=== PATIENT | female | born 1980 | race Caucasian/White ===

== ENCOUNTER 2017-07-24 11:18 | Emergency (ER) | payer OTHER ==
[~2017-07-24] VITALS: Ht 157.5 cm; Wt 136.1 kg
[~2017-07-24 11:18] MED LIST: ALBU90OI INH; ALBU90OI61 INH; AMOCLA875 PO; AZIT250 PO; Bactrim Ds Tab1 EACH PO; CEPH500 PO; CHOLESTEROL PILL; CLIN300 PO; CODGUAEL PO; DOCU100 PO; FAMO20 PO; FLUC150A PO; HYDACE10B; HYDACE5 PO; Norco 5-325 Ta1 EACH PO; PRED10 PO; PRED20 PO; Polytrim Eye Dr10 ML BOTHEYES; SULTRIDS PO
[2017-07-24] MEDS ORDERED: WATER PILL (12:23)
[2017-07-24] MEDS ORDERED: Bactrim Ds Tab1 EACH PO (13:29)
[2017-07-24] MEDS ORDERED: Keflex500 MG PO (13:29)
[2017-07-24] MEDS ORDERED: NYATA15 GM TOP (13:38)
== END 2017-07-24 13:38 | disposition home or self-care (01) ==
LOC: ER 11:18
DX: L03.314 Cellulitis of groin (principal); I10 Essential (primary) hypertension; J45.909 Unspecified asthma, uncomplicated; F17.200 Nicotine dependence, unspecified, uncomplicated
CPT/HCPCS: 99283

== ENCOUNTER 2017-09-05 16:11 | Emergency (ER) | payer OTHER ==
[~2017-09-05] VITALS: Ht 160 cm; Wt 136.1 kg
[~2017-09-05 16:11] MED LIST changes: +Keflex500 MG PO; +NYATA15 GM TOP; +WATER PILL
[2017-09-05] MEDS ORDERED: IBUP800 PO (17:32)
== END 2017-09-05 17:45 | disposition home or self-care (01) ==
LOC: ER 16:11
DX: R07.81 Pleurodynia (principal); Z79.899 Other long term (current) drug therapy; J45.909 Unspecified asthma, uncomplicated; F17.210 Nicotine dependence, cigarettes, uncomplicated
CPT/HCPCS: 96372; 99283; J1885

== ENCOUNTER 2019-01-03 05:33 | Emergency (ER) | payer OTHER ==
[~2019-01-03] VITALS: Ht 160 cm; Wt 127.0 kg
[~2019-01-03 05:33] MED LIST changes: +IBUP800 PO; +Pepcid40 MG PO
[2019-01-03 06:21] LABS: BASOPHILS ABSOLUTE AUTO 0.03 K/mm3 (0.00-0.23); BASOPHILS PERCENT AUTO 0 % (0-2); EOSINOPHILS ABSOLUTE AUTO 0.12 K/mm3 (0.00-0.68); EOSINOPHILS PERCENT AUTO 2 % (0-6); Hematocrit 37.3 % (33.0-51.0); Hemoglobin 12.1 g/dL (11.5-16.0); IMMATURE GRAN ABSOLUTE AUTO 0.03 K/mm3 (0.00-0.10); IMMATURE GRAN PERCENT AUTO 0 % (0-1); LYMPHOCYTES ABSOLUTE AUTO 1.61 K/mm3 (0.84-5.20); LYMPHOCYTES PERCENT AUTO 22 % (21-46); MONOCYTES ABSOLUTE AUTO 0.63 K/mm3 (0.16-1.47); MONOCYTES PERCENT AUTO 9 % (4-13); Mean Corpuscular HGB 28.7 pg (26.0-34.0); Mean Corpuscular HGB Conc 32.4 g/dL (31.5-36.5); Mean Corpuscular Volume 89 fL (80-100); Mean Platelet Volume 9.4 fL (9.1-12.4); NEUTROPHILS ABSOLUTE AUTO 5.02 K/mm3 (1.96-9.15); NEUTROPHILS PERCENT AUTO 68 % (41-73); Platelet Count 182 K/mm3 (150-400); RDW Coefficient Variation 14.1 % (11.7-14.2); RDW Standard Deviation 45.4 fL (35.1-46.3); Red Blood Cell Count 4.21 M/mm3 (3.80-5.20); White Blood Cell Count 7.44 K/mm3 (4.00-11.30)
[2019-01-03 06:35] LABS: Source, Urine Clean Catch
[2019-01-03 06:40] LABS: Blood, Urine 5+ (Neg); Glucose Qualitative, Urine Neg (Neg); Ketones, Urine 1+ (Neg); Leukocyte Esterase, Urine 2+ (Neg); Nitrite, Urine Neg (Neg); Protein, Urine 2+ (Neg); Specific Gravity, Urine 1.015 (1.003-1.022); Urobilinogen, Urine 2+ (Normal)
[2019-01-03 06:50] LABS: Appearance, Urine Hazy (Clear); Bilirubin, Urine 1+ (Neg); Color, Urine Amber (P-Yellow); Red Blood Cells, Urine TNTC /hpf (0-2); White Blood Cells, Urine TNTC /hpf (0-5)
[2019-01-03 06:51] LABS: Bacteria Rare /hpf; Squamous Epithelial Cells Few /hpf (Few)
[2019-01-03 07:14] LABS: Alanine Aminotransfer (ALT/SGP 283 U/L (12-78); Albumin, Blood 3.1 g/dL (3.4-5.0); Albumin/Globulin Ratio 0.8 (0.8-1.8); Alk Phos 306 U/L (50-136); Anion Gap 5 mmol/L (6-16); Aspartate Aminotrans (AST/SGOT 356 U/L (12-37); Bilirubin, Total 0.9 mg/dL (0.1-1.0); Blood Urea Nitrogen 21 mg/dL (8-24); Bun/Creatinine Ratio 31.7 (12.0-20.0); CO2, Blood 26 mmol/L (21-32); Calcium, Blood 8.7 mg/dL (8.5-10.1); Chloride, Blood 107 mmol/L (98-108); Creatinine, Blood 0.66 mg/dL (0.40-1.00); Globulin, Blood 3.8 g/dL (2.2-4.0); Glomerular Filtration Rate >60 (60-); Glucose, Blood 122 mg/dL (70-99); Sodium, Blood 138 mmol/L (136-145); Total Protein, Blood 6.9 g/dL (6.4-8.2)
[2019-01-03] MEDS ORDERED: Percocet 10-321 EACH PO (07:31)
== END 2019-01-03 07:49 | disposition home or self-care (01) ==
LOC: ER 05:33
PROVIDERS: Emergency Medicine
DX: K80.50 Calculus of bile duct without cholangitis or cholecystitis without obstruction (principal); J45.909 Unspecified asthma, uncomplicated; F17.210 Nicotine dependence, cigarettes, uncomplicated
CPT/HCPCS: 80053; 81001; 81025; 83690; 85025; 87086; 96374; 96375; 99284-25; J2405; J3010

== ENCOUNTER 2019-04-16 15:31 | Emergency (ER) | payer OTHER ==
[~2019-04-16] VITALS: Ht 160 cm; Wt 121.1 kg
[~2019-04-16 15:31] MED LIST changes: +Percocet 10-321 EACH PO
[2019-04-16 16:03] LABS: BASOPHILS ABSOLUTE AUTO 0.03 K/mm3 (0.00-0.23); BASOPHILS PERCENT AUTO 0 % (0-2); EOSINOPHILS ABSOLUTE AUTO 0.11 K/mm3 (0.00-0.68); EOSINOPHILS PERCENT AUTO 1 % (0-6); Hematocrit 42.2 % (33.0-51.0); Hemoglobin 13.8 g/dL (11.5-16.0); IMMATURE GRAN ABSOLUTE AUTO 0.06 K/mm3 (0.00-0.10); IMMATURE GRAN PERCENT AUTO 1 % (0-1); LYMPHOCYTES ABSOLUTE AUTO 2.03 K/mm3 (0.84-5.20); LYMPHOCYTES PERCENT AUTO 16 % (21-46); MONOCYTES ABSOLUTE AUTO 0.63 K/mm3 (0.16-1.47); MONOCYTES PERCENT AUTO 5 % (4-13); Mean Corpuscular HGB 28.9 pg (26.0-34.0); Mean Corpuscular HGB Conc 32.7 g/dL (31.5-36.5); Mean Corpuscular Volume 89 fL (80-100); Mean Platelet Volume 9.5 fL (9.1-12.4); NEUTROPHILS ABSOLUTE AUTO 10.15 K/mm3 (1.96-9.15); NEUTROPHILS PERCENT AUTO 78 % (41-73); Platelet Count 285 K/mm3 (150-400); RDW Coefficient Variation 12.7 % (11.7-14.2); RDW Standard Deviation 41.3 fL (35.1-46.3); Red Blood Cell Count 4.77 M/mm3 (3.80-5.20); White Blood Cell Count 13.01 K/mm3 (4.00-11.30)
[2019-04-16 16:36] LABS: Alanine Aminotransfer (ALT/SGP 272 U/L (12-78); Albumin, Blood 3.3 g/dL (3.4-5.0); Albumin/Globulin Ratio 0.8 (0.8-1.8); Alk Phos 216 U/L (50-136); Anion Gap 4 mmol/L (6-16); Aspartate Aminotrans (AST/SGOT 352 U/L (12-37); Bilirubin, Total 1.4 mg/dL (0.1-1.0); Blood Urea Nitrogen 18 mg/dL (8-24); Bun/Creatinine Ratio 26.4 (12.0-20.0); CO2, Blood 30 mmol/L (21-32); Calcium, Blood 9.1 mg/dL (8.5-10.1); Chloride, Blood 102 mmol/L (98-108); Creatinine, Blood 0.68 mg/dL (0.40-1.00); Globulin, Blood 4.3 g/dL (2.2-4.0); Glomerular Filtration Rate >60 (60-); Glucose, Blood 110 mg/dL (70-99); Potassium, Blood 3.9 mmol/L (3.5-5.5); Sodium, Blood 136 mmol/L (136-145); Total Protein, Blood 7.6 g/dL (6.4-8.2)
== END 2019-04-16 21:31 | disposition short-term general hospital (02) ==
LOC: ER 15:31
PROVIDERS: Physician Assistant
DX: K80.70 Calculus of gallbladder and bile duct without cholecystitis without obstruction (principal); K85.90 Acute pancreatitis without necrosis or infection, unspecified; Z87.891 Personal history of nicotine dependence
CPT/HCPCS: 36415; 76705; 80053; 83690; 84703; 85025; 96365; 96375; 99285-25; J2270; J2405; J2543; J7120

== ENCOUNTER → 2019-07-31 | Outpatient (CLI) | payer OTHER ==
[2019-08-02 13:07] LABS: HPV 16 Negative (Negative); HPV 18 Negative (Negative); HPV OTHER HR TYPES Negative (Negative)
== END ==
LOC: LAB SRC 11:00 → LAB SHORT 11:00
PROVIDERS: Nurse Practitioner Family
DX: Z12.4 Encounter for screening for malignant neoplasm of cervix (principal)
CPT/HCPCS: 87624; G0123

== ENCOUNTER → 2022-11-27 | Outpatient (CLI) | payer OTHER | END | disposition home or self-care (01) | LOC: LAB SHORT 14:14 → LAB 14:14 | DX: N91.1 Secondary amenorrhea (principal) | CPT/HCPCS: 84703 ==

== ENCOUNTER 2023-07-16 09:00 | Emergency (ER) | payer OTHER ==
[~2023-07-16] VITALS: Ht 157.5 cm; Wt 122.1 kg
[2023-07-16 10:00] VITALS: BP 120/71
[2023-07-16] MEDS ORDERED: CEPH500 PO ×2 (11:54→12:05)
== END 2023-07-16 12:02 | disposition home or self-care (01) ==
LOC: ER 09:00
DX: L03.115 Cellulitis of right lower limb (principal); J45.909 Unspecified asthma, uncomplicated; Z87.891 Personal history of nicotine dependence
CPT/HCPCS: 93971; 99283-25; A9270

== ENCOUNTER 2024-02-05 14:33 | Emergency (ER) | payer OTHER ==
[~2024-02-05] VITALS: Ht 160 cm; Wt 136.1 kg
[2024-02-05 14:41] VITALS: BP 159/113
[2024-02-05] MEDS ORDERED: Tetracaine HCl/Pf 0.5% Opth Soln 4 ml LEFTEYE ONE (15:30)
[2024-02-05] MEDS ORDERED: Fluorescein Sod 1MG Opth Strips LEFTEYE ONE (15:30)
[2024-02-05] MEDS ORDERED: Erythromycin 0.5% Opth Oint 1 gm LEFTEYE ONE (16:05)
[2024-02-05] MEDS ORDERED: ERYT.5TO LEFTEYE (16:09)
== END 2024-02-05 16:22 | disposition home or self-care (01) ==
LOC: ER 14:33
DX: H11.32 Conjunctival hemorrhage, left eye (principal); J45.909 Unspecified asthma, uncomplicated; G47.30 Sleep apnea, unspecified; Z87.891 Personal history of nicotine dependence
CPT/HCPCS: A9270

== ENCOUNTER 2024-10-11 11:54 | Emergency (ER) | payer OTHER ==
[~2024-10-11] VITALS: Ht 160 cm; Wt 122.5 kg
[~2024-10-11 11:54] MED LIST changes: +ERYT.5TO LEFTEYE
[2024-10-11 13:30] VITALS: BP 132/88
[2024-10-11 13:49] LABS: Influenza A, PCR NEGATIVE (NEGATIVE); Influenza B, PCR NEGATIVE (NEGATIVE); Resp Syncytial Virus, PCR NEGATIVE (NEGATIVE); SARS-Cov-2 (COVID-19) PCR, MMC NEGATIVE (NEGATIVE)
[2024-10-11 13:55] LABS: BASOPHILS ABSOLUTE AUTO 0.03 K/mm3 (0.00-0.23); BASOPHILS PERCENT AUTO 0 % (0-2); EOSINOPHILS PERCENT AUTO 4 % (0-6); Hematocrit 40.7 % (33.0-51.0); Hemoglobin 13.3 g/dL (11.5-16.0); IMMATURE GRAN ABSOLUTE AUTO 0.01 K/mm3 (0.00-0.10); IMMATURE GRAN PERCENT AUTO 0 % (0-1); LYMPHOCYTES PERCENT AUTO 22 % (21-46); MONOCYTES ABSOLUTE AUTO 0.43 K/mm3 (0.16-1.47); MONOCYTES PERCENT AUTO 5 % (4-13); Mean Corpuscular HGB 28.9 pg (26.0-34.0); Mean Corpuscular HGB Conc 32.7 g/dL (31.5-36.5); Mean Corpuscular Volume 88 fL (80-100); Mean Platelet Volume 9.1 fL (9.1-12.4); NEUTROPHILS ABSOLUTE AUTO 5.88 K/mm3 (1.96-9.15); NEUTROPHILS PERCENT AUTO 69 % (41-73); Platelet Count 221 K/mm3 (150-400); RDW Coefficient Variation 13.1 % (11.7-14.2); RDW Standard Deviation 42.5 fL (35.1-46.3); Red Blood Cell Count 4.61 M/mm3 (3.80-5.20); White Blood Cell Count 8.55 K/mm3 (4.00-11.30)
[2024-10-11 13:58] LABS: Source, Urine Clean Catch
[2024-10-11 14:01] LABS: Appearance, Urine Hazy (Clear); Bilirubin, Urine Neg (Neg); Blood, Urine 2+ (Neg); Color, Urine Yellow (P-Yellow); Glucose Qualitative, Urine Neg (Neg); Ketones, Urine Neg (Neg); Leukocyte Esterase, Urine Neg (Neg); Nitrite, Urine Neg (Neg); Protein, Urine Neg (Neg); Specific Gravity, Urine 1.025 (1.003-1.022); Urobilinogen, Urine NORM (Normal)
[2024-10-11 14:13] LABS: Albumin, Blood 3.4 g/dL (3.4-5.0); Albumin/Globulin Ratio 0.9 (0.8-1.8); Bilirubin, Total 0.2 mg/dL (0.1-1.0); Bun/Creatinine Ratio 27.9 (12.0-20.0); Creatinine, Blood 0.79 mg/dL (0.40-1.00); Globulin, Blood 3.7 g/dL (2.2-4.0); Potassium, Blood 4.1 mmol/L (3.5-5.5); Total Protein, Blood 7.1 g/dL (6.4-8.2)
[2024-10-11 14:48] LABS: Bacteria Many /hpf; Squamous Epithelial Cells Mod /hpf (Few)
== END 2024-10-11 14:49 | disposition home or self-care (01) ==
LOC: ER 11:54
PROVIDERS: Student in an Organized Health Care Education/Training Program
DX: R19.7 Diarrhea, unspecified (principal); J45.909 Unspecified asthma, uncomplicated; G47.33 Obstructive sleep apnea (adult) (pediatric); Z87.891 Personal history of nicotine dependence
CPT/HCPCS: 0241U; 80053; 81001; 83690; 85025; 87086; 99284